=== PATIENT | female | born 1995 | race Caucasian/White ===

== ENCOUNTER 2018-11-04 09:41 | Day surgery (SDC) | payer BC ==
[2018-10-30 15:24] LABS: BASOPHILS % (AUTO) 0.4 % (0-1); EOSINOPHILS % (AUTO) 0.3 % (0-6); LYMPHOCYTES # (AUTO) 2.9 X10'3 (1.1-4.8); LYMPHOCYTES % (AUTO) 29.7 % (21-51); MEAN CORPUSCULAR HEMOGLOBIN 31.8 PG (27.0-31.0); MEAN CORPUSCULAR HGB CONC 33.8 g/dL (33.0-36.5); MEAN CORPUSCULAR VOLUME 94.2 FL (78-98); MEAN PLATELET VOLUME 7.3 FL (7.4-10.4); MONOCYTES # (AUTO) 0.6 X10'3 (0-0.9); NEUTROPHILS # (AUTO) 6.2 X10'3 (1.8-7.7); NEUTROPHILS % (AUTO) 63.6 % (42-75); PRE OP HEMATOCRIT 36.4 % (35.0-45.0); PRE OP HEMOGLOBIN 12.3 g/dL (12.0-16.0); PRE OP PLATELET COUNT 300 X10'3 (140-440); RED BLOOD COUNT 3.87 X10'6 (4.20-5.60); RED CELL DISTRIBUTION WIDTH 13.2 % (11.5-14.5)
[2018-10-30 15:25] LABS: CLARITY,URINE SLIGHTLY CLOUDY (Clear); COLOR,URINE YELLOW (Yellow); GLUCOSE, URINE NEGATIVE (Neg); KETONES,URINE TRACE mg/dl (Neg); LEUKOCYTE ESTERASE ,URINE NEGATIVE (Neg); NITRITES, URINE NEGATIVE (Neg); OCCULT BLOOD,URINE SMALL (Neg); PH,URINE 5.5 (4.8-8.0); PROTEIN,URINE NEGATIVE (Neg)
[2018-10-30 15:26] LABS: UA COLLECTION TYPE CLN CATCH MIDSTREAM
[2018-10-30 15:32] LABS: HCG SERUM QL NEGATIVE
[2018-10-30 15:38] LABS: ALBUMIN 3.9 G/DL (3.4-5.0); ALKALINE PHOSPHATASE 65 IU/L (46-116); BLOOD UREA NITROGEN 8 MG/DL (7-18); BUN/CREATININE RATIO 11.4 (6.6-38.0); CALCIUM 9.2 MG/DL (8.5-10.1); CHLORIDE 106 MMOL/L (99-107); PRE OP ALT 56 U/L (30-65); PRE OP ANION GAP 10 (8-16); PRE OP AST 31 U/L (10-37); PRE OP BILIRUB, TOTAL 0.5 MG/DL (0.0-1.0); PRE OP GLUCOSE 80 MG/DL (70-104); PRE OP SODIUM 141 MMOL/L (135-145); TOTAL CARBON DIOXIDE 24.9 MMOL/L (24-32); eGFR > 90 ML/MIN
[2018-10-30 15:40] LABS: BACTERIA,URINE FEW /HPF (Neg); MUCUS STRANDS MANY /LPF (Neg); RBC,URINE 0-2 /HPF (0-2); SQUAMOUS EPITHELIAL CELL,UR MANY /LPF (FEW); WBC,URINE 0-4 /HPF (0-4)
[2018-11-04] VITALS (7 sets, daily range): BP systolic 112–121; BP diastolic 56–80
[~2018-11-04] VITALS: Ht 162.6 cm; Wt 86.0 kg
[~2018-11-04 09:41] MED LIST: BIRTH CONTROL
[2018-11-04] MEDS ORDERED: cefazolin/dext.iso 2gm/100 ML IV ONE (09:45)
[2018-11-04] MEDS ORDERED: ringers solution, lacted 1,000 ML IV SCH (09:45)
[2018-11-04] MEDS ORDERED: famotidine 20mg tablet PO ONE (09:45)
[2018-11-04] MEDS ORDERED: fentaNYL /PF 50mcg/ml 5ml ampule ONE (13:29)
[2018-11-04] MEDS ORDERED: midazolam 2 mg/2 ml injection ONE (13:29)
[2018-11-04] MEDS ORDERED: povidone-iodine 10% topical ointment 28.4gm TP ONE (13:32)
[2018-11-04] MEDS ORDERED: BUPIVAcaine/PF 2.5 mg/ml (0.25%) 30ml vial ONE (13:32)
[2018-11-04] MEDS ORDERED: methylene blue (5mg/ml) 50mg/10ml ampul IV ONE (13:32)
[2018-11-04] MEDS ORDERED: sevoflurane 250ml liquid IH ONE (13:46)
[2018-11-04] MEDS ORDERED: neostigmine methylsulfate 1 MG/ML 10ml vial ONE (14:38)
[2018-11-04] MEDS ORDERED: rocuronium 10mg/ml inj IV ONE (14:38)
[2018-11-04] MEDS ORDERED: propofol inj 20 ML IV ONE (14:38)
[2018-11-04] MEDS ORDERED: glycopyrrolate 0.2mg/ml inj ONE (14:38)
[2018-11-04] MEDS ORDERED: LIDOcaine 2% (20mg/ml) 5ml vial ONE (14:38)
[2018-11-04] MEDS ORDERED: dexamethasone sod phosphate 4mg/ml inj. ONE (14:38)
[2018-11-04] MEDS ORDERED: ondansetron/PF 4mg/2ml inj ONE (14:38)
--- NOTE | 2018-11-04 15:10 | NUR ---
Received from OR via BED, accompanied by Anesthesiologist --GERALDINE- and report given by Anesthesiolgist. PATIENT A&OX4, DENIES PAIN, V/S WNL, NEUROVASCULAR CHECKS INTACT, 20G PIV LUE, SCD ON, DRESSING TO SACRUM CDI
--- NOTE | 2018-11-04 15:50 | NUR ---
PATIENT A&OX4, DENIES PAIN, V/S WNL, NEUROVASCULAR CHECKS INTACT, 20G PIV LUE D/C, SCD OFF, DRESSING TO SACRUM CDI, I HAVE REVIEWED D/C INSTRUCTIONS WITH PATIENT AND FAMILY AND THEY HAVE VERBALIZED UNDERSTANDING. PATIENT D/C HOME WITH ALL BELONGINGS AND FAMILY GAVE TRANSPORT HOME.
== END 2018-11-04 15:50 | disposition home or self-care (01) ==
LOC: PAS 09:41
PROVIDERS: ATTEND Surgery
DX: L05.91 Pilonidal cyst without abscess (principal); F17.290 Nicotine dependence, other tobacco product, uncomplicated; E66.9 Obesity, unspecified; Z68.32 Body mass index [BMI] 32.0-32.9, adult; Z79.899 Other long term (current) drug therapy
CPT/HCPCS: 11771; 36415; 80053; 81001; 82948; 84703; 85025; J1100; J2001; J2250; J2405; J2704; J2710; J3010; J3490; Q9968; A4215; A4618; A6258; A6449; A7000; J3590; J7120

== ENCOUNTER 2023-06-24 14:16 | Emergency (ER) | payer BC, MEDICAID, OTHER ==
[~2023-06-24] VITALS: Ht 162.6 cm; Wt 70.0 kg
[2023-06-24 14:56] VITALS: TEMP 98.7
[2023-06-24 18:01] VITALS: BP 111/62; PULSE 61; RESP 16; O2SAT 98
== END 2023-06-24 18:03 | disposition home or self-care (01) ==
LOC: ER 14:17
DX: S13.4XXA Sprain of ligaments of cervical spine, initial encounter (principal); V49.9XXA Car occupant (driver) (passenger) injured in unspecified traffic accident, initial encounter; Y93.89 Activity, other specified; Y92.89 Other specified places as the place of occurrence of the external cause; Y99.8 Other external cause status
CPT/HCPCS: 72040; 99283